=== PATIENT | male | born 1980 | race Caucasian/White ===

== ENCOUNTER 2024-11-19 06:30 | Day surgery (SDC) | payer OTHER, SELFPAY ==
[2024-11-18 10:32] VITALS: BMI 25.3
[2024-11-19] VITALS (7 sets, daily range): BP systolic 83–136; BP diastolic 43–84; PULSE 64–78; RESP 10–16; TEMP 36.4–36.8; O2SAT 95–100; BMI 25.3
--- NOTE | 2024-11-19 | DI.RAD.S_ITS ---
PROCEDURE: XR FOREARM RT 2V INDICATIONS: Post-Op ORIF TECHNIQUE: 2 views of the forearm were acquired. COMPARISON: [facility], [place], XR FOREARM RT 2V, 11/17/2024, 14:31. FINDINGS: Bones: Casted views. Expected appearance post ORIF of a distal 3rd shaft fracture of the radius. Near overall anatomic alignment. Soft tissues: No suspicious soft tissue calcifications or masses. IMPRESSION: Expected postoperative appearance. Dictated by: Harvey Sosa M.D. on 11/19/2024 at 9:54 Approved by: Harvey Sosa M.D. on 11/19/2024 at 9:55
[2024-11-19] MEDS: LACTATED RINGERS 1,000 ML 42 ML IV ×2 (07:14→08:55)
--- NOTE | 2024-11-19 07:28 | PM.PREOP ---
Pre-operative Note Interval Note History & Physical reviewed/Exam performed by Physician: Yes Changes to H&P: No H&P completed within 30 days and has changed as indicated here:: I saw the patient with our PA on 17 November 2024. No changes to H&P.
[2024-11-19] MEDS: SCOPOLAMINE 1 PATCH TOP (07:34)
[2024-11-19] MEDS: CEFAZOLIN 2 GM/100 ML PREMIX 100 ML IV (07:55)
--- NOTE | 2024-11-19 08:06 | SUR.OPER ---
Supine on padded OR bed, head on pillow, left arm secured on padded arm board at <90 degrees abduction, right arm on arm table at less than 90 degrees abduction, legs uncrossed, safety belt at thigh, tape over blanket over lower legs.
[2024-11-19] MEDS: BUPIVACAINE 0.25% (PF) VIAL 30 ML INJ (08:50)
--- NOTE | 2024-11-19 09:21 | P.OP_ITS ---
Operative Date/Time/Diagnoses Date of procedure: 11/19/24 Time of procedure: 07:45 Pre-op diagnosis: right radial shaft (galeazzi) Post-op diagnosis: same Procedure & Clinicians Procedure: ORIF right radial shaft fracture Same procedure as scheduled: Yes Indications: Right radial shaft fracture (galeazzi) Surgeon: Jaylin Montero Dressage Instructor: Shanice Whatley Anesthesia Type: General Operative Notes Findings: The patient was met in the preoperative hold area his right upper extremity was signed as correct extremity. The patient was taken back to the operating room and placed in supine position. All general anesthesia was induced. A well- padded tourniquet was placed to the right upper extremity. The left DRUJ was tested and found to be lax he had a former history of left forearm fracture. The patient was prepped and draped in the standard sterile fashion. A time-out was performed, confirming the correct patient, correct procedure, correct extremity initials on the operative site. An Esmarch was used to exsanguinate the right upper extremity the tourniquet was inflated to 200 mmHg. A 8 cm vertical incision was made centered at the fracture site. Dissection was taken down to the subcutaneous tissue. The superficial branch of the radial nerve and radial artery were protected and moved laterally. The interval between the FCR and brachioradialis was explored and the pronator quadratus was identified as well as FPL these were removed from the radial shaft. The fracture site was identified and cleared of debris. A reduction maneuver was performed with traction and not penetrating reduction clamps. The 7 hole plate was placed on the bone and fixed with 6 2 K-wires. Fluoroscopy was performed and demonstrated that the fracture was reduced and the plate was in good positi on. Next a total of 63.5 mm screws were placed the plate was placed in compression mode. There is excellent reduction at the fracture site. Fluoroscopic imaging was utilized to ensure appropriate screw length and position of the plate as well as fracture reduction. The wound was copiously irrigated and closed in layered fashion with 2-0 Vicryl and 3-0 nylon. The DRUJ was tested and found to be stable and was the most stable in pronation. Fluoro was used to A sterile dressing was performed consistent with a Xeroform, plain gauze, Webril and a sugar-tong splint was placed. The A total of 24 cc of 0.25% Marcaine was placed in a field block in the wound. The patient was awoken and taken to PACU in stable condition. All counts were correct at the end of the case. An political science research assistant was utilized for positioning, retraction, closure and splint placement. Tourniquet: 48 minutes at 200 mm HG. Implants: Synthes 7 hole LCP plate. 6 3.5 mm cortical screws. Closure Type: primary Estimated Blood Loss (mL): 5 Blood products transfused: none Tourniquet time (min): 48 Complications: none Post-operative Condition: stable Disposition: PACU Plan for aftercare: D/c home F/u in 2 weeks for suture removal and transition to a removable velcro splint.
== END 2024-11-19 10:59 | disposition home or self-care (01) ==
PROVIDERS: Visit Provider Orthopaedic Surgery
PROC: (CPT 25525; principal; 2024-11-19 07:45)
DX: S52.321A Displaced transverse fracture of shaft of right radius, initial encounter for closed fracture (principal); Z87.891 Personal history of nicotine dependence; V18.0XXA Pedal cycle driver injured in noncollision transport accident in nontraffic accident, initial encounter; Y93.55 Activity, bike riding
CPT/HCPCS: 25525; 73090; C1713; J0690; J1100; J1885; J2250; J2405; J2704; J3010; J3490

== ENCOUNTER 2025-01-19 16:15 | Outpatient (RCR) | payer OTHER, SELFPAY ==
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
--- NOTE | 2024-12-23 12:43 | PT.OPPOC ---
Physical, Occupational & Speech Therapy At [facility] Current Diagnoses Pain in unspecified shoulder (12/22/24) Pain in right arm (12/22/24) Unspecified dislocation of left acromioclavicular joint, subsequent encounter (12/22/24) Displaced transverse fracture of shaft of right radius, initial encounter for closed fracture (12/22/24) Visit Care Team Role Provider Type Doctor Carlyn, Primary Care Provider Non-Staff Specialty: Medical Address: Phone: Fax: Email: Jaylin Montero DO Attending Provider Physician Referring Provider Specialty: Orthopedics Orthopedic Surgery Address: [address] [place] [address], [id number] Email: [email or web address] Plan Of Care PT-OP-T Assessment and Plan Start: 12/22/24 16:15 Freq: Status: Active Protocol: Document 12/22/24 16:15 BL (Rec: 12/22/24 20:01 BL Laptop) Physical Therapy Assessment Rehab Potential Rehabilitation Good Potential Evaluation Complexity Number of Personal 1-2 Factors/ Comorbidities Number of Body 3 Systems Impaired Clinical Evolving Presentation at Evaluation Impairments Impairments Activity Tolerance,Functional Activities,Functional Mobility,Integument,Pain,Posture,ROM,Soft Tissue Mobility,Strength Goals Four Appeals And Generalist Clerk Goal (LTG) Pt will demo improved L shoulder flexion strength to 4+ /5 by DC without pain for improved completion of overhead activities. Three Snf Goal (LTG) Pt will demo improved R novelty maker strength to 75lbs or better by DC for improved completion of functional ADLS . Two Appeals And Generalist Clerk Goal (LTG) Pt will demo full L shoulder AORM to 170 deg or better without compensation and no feelings of dislocation by DC for improved functional mobility with ADLS. One Short Term Goal (STG pt will be ind with HEP within 2 visits in order to ) progress toward windows and doors installer therapy goal outside of therapy visits. Appeals And Generalist Clerk Goal (LTG) Pt will demo improved QuickDASH score to 25% disability or less by DC for improved functional mobility. Assessment Summary Assessment Pt Presents to the clinic s/p R radial ORIF with L AC joint separation and R wrist pathology. Pt demos slight limitations in ROM and strength through L shoulder and R wrist. Pt also demos decreased stability and strength that are affecting his ability to participate in ADLs. Pt will benefit from strength and endurance training in order to improved functional mobility for return to PLOF and exercise activities. Physical Therapy Plan Frequency and Duration Frequency of 2x/Week Treatment Duration of 10 treatment (weeks) Plan of Care Start 12/22/24 Date Plan of Care End 03/02/25 Date Therapeutic Interventions Therapeutic Coordination Training,Home Exercise Program,Joint Interventions Mobilizations,Manual Therapy,Neuromuscular Re-education ,Orthotic/Prosthetic Management,Patient/Caregiver Education,Self-Care/Home Management,Sensory Integration ,Soft Tissue Mobilization,Taping,Therapeutic Activities ,Therapeutic Exercises Modalities Cold Pack/Ice Massage,Electric Stimulation,Hot Packs, Infrared Therapy,Iontophoresis,Ultrasound Next Visit Focus/Plan Next Note Type Treatment Note Next Visit Plan Advance HEP for L AC joint separation, R wrist pain free ROM strengthening, novelty maker strength training Plan of Care Dates Plan of Care Start Date 12/22/24 Plan of Care End Date 03/02/25 Electronically Signed by: Christiano Whelan, PT 12/23/24 7179 If you are in agreement with this Plan of Care, please return a signed and dated copy. I have reviewed this Plan of Care and certify that the skilled therapy services above are required to meet the patient?s needs. Physician Signature Date Printed Name and Credentials Clinical Instructor Signature Printed Name and Credentials
--- NOTE | 2024-12-24 17:07 | PT.OTN ---
Current Diagnoses Pain in unspecified shoulder (12/22/24) Pain in right arm (12/22/24) Unspecified dislocation of left acromioclavicular joint, subsequent encounter (12/22/24) Displaced transverse fracture of shaft of right radius, initial encounter for closed fracture (12/22/24) Physical Therapy Treatment Note PT-OP-A Visit Information Start: 12/22/24 16:15 Freq: Status: Active Protocol: Document 12/24/24 15:53 BL (Rec: 12/24/24 17:07 BL Laptop) Out-Patient Physical Therapy Visit Information Visit Information Visit Type Treatment Note Visit Start Time 16:00 Visit Stop Time 16:40 Visit Number (2) 2/ (PN by 01/22/10) Number of PERIOPERATIVE EDUCATOR Visits 0 PT-OP-C Subjective Start: 12/22/24 16:15 Freq: Status: Active Protocol: Document 12/24/24 15:53 BL (Rec: 12/24/24 17:07 BL Laptop) OP-PT Subjective Patient Comments Patient Comments Pt presents to the clinic this date and reports he is doing well, states HEP is going well, has been wrapping his wrist and this has improved his symptoms. PT-OP-J Posture/Palpation/Skin Start: 12/22/24 16:15 Freq: Status: Active Protocol: Document 12/22/24 16:15 BL (Rec: 12/22/24 20:01 BL Laptop) Posture Evaluation Position posture Evaluation View . Comments Posture Comments Pt presents with neutral alignment of cervical, thoracic, and lumbar spine, stands with neutral posture , slight L rotation. Pt demos L shoulder step off deformity. Palpation Assessment Location R elbow Palpation Details no pain noted through common flexor or extensor tendon group/ muscle bellies R wrist Palpation Details pain noted with deep palpation to dorsal medial aspect of wrist. L shoulder Palpation Details Pain noted with palpation to L AC area. PT-OP-K Range of Motion Start: 12/22/24 16:15 Freq: Status: Active Protocol: Document 12/22/24 16:15 BL (Rec: 12/22/24 20:01 BL Laptop) Cervical Spine Range of Motion Cervical Spine Active Percentage Comments WFL Shoulder Goniometric Range of Motion Shoulder right Flexion 170 Abduction 170 External Rotation at 95 90 degrees Abduction Internal Rotation 70 Comments z left Flexion 160 Abduction 160 External Rotation at 80 90 degrees Abduction Internal Rotation 60 Comments pt reports feeling his shoulder is going to pop out of place with ER. Elbow/Forearm Range of Motion Elbow/Forearm right Comments WFL left Comments WFL Wrist Goniometric Range of Motion Wrist Right Flexion Active ( 65 degrees) Extension Active ( 60 degrees) Ulnar Deviation 25 Active (degrees) Radial Deviation 20 Active (degrees) Left Flexion Active ( 65 degrees) Extension Active ( 65 degrees) Ulnar Deviation 25 Active (degrees) Radial Deviation 20 Active (degrees) ROM Limitations Comments pain noted at all end ranges on R PT-OP-M Strength Start: 12/22/24 16:15 Freq: Status: Active Protocol: Document 12/22/24 16:15 BL (Rec: 12/22/24 20:01 BL Laptop) Shoulder Strength Shoulder Manual Muscle Testing Right Flexion 5 Normal Extension 4+ Good+ Abduction (C5) 4+ Good+ Internal Rotation 4+ Good+ Left Flexion 4 Good Extension 4 Good Abduction (C5) 4+ Good+ External Rotation 4+ Good+ Internal Rotation 4+ Good+ Wrist Strength Wrist Manual Muscle Testing Left Flexion (C7) 5 Normal Hand Cnc Mill Operator/Pinch Strength Hand Dominance Hand Dominance Right Hand Strength Right Cnc Mill Operator (lbs) 60 Left Cnc Mill Operator (lbs) 80 PT-OP-Q Treatments Start: 12/22/24 16:15 Freq: Status: Active Protocol: Document 12/24/24 15:53 BL (Rec: 12/24/24 17:07 BL Laptop) Therapeutic Exercises Prone Exercises T,Y,A Prone Exercise Name cues for scapular retraction Equipment Used 0# Comments pt fatigued following Sitting Exercises Tband Sitting Exercise IR/ER/Ext Name Comments cues for glenohumeral depression. PT-OP-T Assessment and Plan Start: 12/22/24 16:15 Freq: Status: Active Protocol: Document 12/24/24 15:53 BL (Rec: 12/24/24 17:07 BL Laptop) Physical Therapy Assessment Goals Four Programming Internship Goal (LTG) Pt will demo improved L shoulder flexion strength to 4+ /5 by DC without pain for improved completion of overhead activities. Three Programming Internship Goal (LTG) Pt will demo improved R manager transfusion strength to 75lbs or better by DC for improved completion of functional ADLS . Two Senior Living Goal (LTG) Pt will demo full L shoulder AORM to 170 deg or better without compensation and no feelings of dislocation by DC for improved functional mobility with ADLS. One Short Term Goal (STG pt will be ind with HEP within 2 visits in order to ) progress toward adjunct faculty for medical terminology therapy goal outside of therapy visits. Programming Internship Goal (LTG) Pt will demo improved QuickDASH score to 25% disability or less by DC for improved functional mobility. Assessment Summary Assessment Pt tolerates session well, progress HEP for scapular and glenohumeral stabilization, pt continues to have mild discomfort over superior shoulder with flexion activities or deep extension. Pt instructed to avoid working into pain. Pt fatigued following session. Physical Therapy Plan Frequency and Duration Frequency of 2x/Week Treatment Duration of 10 treatment (weeks) Plan of Care Start 12/22/24 Date Plan of Care End 03/02/25 Date Next Visit Focus/Plan Next Note Type Treatment Note Next Visit Plan Advance HEP for L AC joint separation, R wrist pain free ROM strengthening, manager transfusion strength training
--- NOTE | 2024-12-30 16:58 | PT.OTN ---
Current Diagnoses Pain in unspecified shoulder (12/30/24) Pain in right arm (12/30/24) Unspecified dislocation of left acromioclavicular joint, subsequent encounter (12/30/24) Displaced transverse fracture of shaft of right radius, initial encounter for closed fracture (12/30/24) Physical Therapy Treatment Note PT-OP-A Visit Information Start: 12/22/24 16:15 Freq: Status: Active Protocol: Document 12/30/24 16:18 BL (Rec: 12/30/24 16:57 BL Laptop) Out-Patient Physical Therapy Visit Information Visit Information Visit Type Treatment Note Visit Start Time 16:15 Visit Stop Time 16:55 Visit Number (3) 3 (PN by 01/22/10) Number of CLAM DREDGER Visits 0 PT-OP-C Subjective Start: 12/22/24 16:15 Freq: Status: Active Protocol: Document 12/30/24 16:18 BL (Rec: 12/30/24 16:57 BL Laptop) OP-PT Subjective Patient Comments Patient Comments Pt presents to the clinic this date and reports he is doing well, states HEP is going well, reports similar pains in R wrist. Pt states improved shoulder strength however continues to have mild discomfort with certain movements. PT-OP-J Posture/Palpation/Skin Start: 12/22/24 16:15 Freq: Status: Active Protocol: Document 12/22/24 16:15 BL (Rec: 12/22/24 20:01 BL Laptop) Posture Evaluation Position posture Evaluation View . Comments Posture Comments Pt presents with neutral alignment of cervical, thoracic, and lumbar spine, stands with neutral posture , slight L rotation. Pt demos L shoulder step off deformity. Palpation Assessment Location R elbow Palpation Details no pain noted through common flexor or extensor tendon group/ muscle bellies R wrist Palpation Details pain noted with deep palpation to dorsal medial aspect of wrist. L shoulder Palpation Details Pain noted with palpation to L AC area. PT-OP-K Range of Motion Start: 12/22/24 16:15 Freq: Status: Active Protocol: Document 12/22/24 16:15 BL (Rec: 12/22/24 20:01 BL Laptop) Cervical Spine Range of Motion Cervical Spine Active Percentage Comments WFL Shoulder Goniometric Range of Motion Shoulder right Flexion 170 Abduction 170 External Rotation at 95 90 degrees Abduction Internal Rotation 70 Comments z left Flexion 160 Abduction 160 External Rotation at 80 90 degrees Abduction Internal Rotation 60 Comments pt reports feeling his shoulder is going to pop out of place with ER. Elbow/Forearm Range of Motion Elbow/Forearm right Comments WFL left Comments WFL Wrist Goniometric Range of Motion Wrist Right Flexion Active ( 65 degrees) Extension Active ( 60 degrees) Ulnar Deviation 25 Active (degrees) Radial Deviation 20 Active (degrees) Left Flexion Active ( 65 degrees) Extension Active ( 65 degrees) Ulnar Deviation 25 Active (degrees) Radial Deviation 20 Active (degrees) ROM Limitations Comments pain noted at all end ranges on R PT-OP-M Strength Start: 12/22/24 16:15 Freq: Status: Active Protocol: Document 12/22/24 16:15 BL (Rec: 12/22/24 20:01 BL Laptop) Shoulder Strength Shoulder Manual Muscle Testing Right Flexion 5 Normal Extension 4+ Good+ Abduction (C5) 4+ Good+ Internal Rotation 4+ Good+ Left Flexion 4 Good Extension 4 Good Abduction (C5) 4+ Good+ External Rotation 4+ Good+ Internal Rotation 4+ Good+ Wrist Strength Wrist Manual Muscle Testing Left Flexion (C7) 5 Normal Hand Clerical Support Specialist/Pinch Strength Hand Dominance Hand Dominance Right Hand Strength Right Clerical Support Specialist (lbs) 60 Left Clerical Support Specialist (lbs) 80 PT-OP-Q Treatments Start: 12/22/24 16:15 Freq: Status: Active Protocol: Document 12/30/24 16:18 BL (Rec: 12/30/24 16:57 BL Laptop) Therapeutic Exercises Prone Exercises T,Y,A Prone Exercise Name cues for scapular retraction Equipment Used 0# Comments pt fatigued following Sitting Exercises Tband Sitting Exercise IR/ER/Ext Name Resistance blue band Comments cues for glenohumeral depression. Standing Exercises strength Standing Exercise Wall Ball, Banded wall walks with elbows Name Resistance Ylw theraball, lvl 1 band Comments 3x 30 sec, decreased rhythm and speed, fatigued following. PT-OP-T Assessment and Plan Start: 12/22/24 16:15 Freq: Status: Active Protocol: Document 12/30/24 16:18 BL (Rec: 12/30/24 16:57 BL Laptop) Physical Therapy Assessment Goals Four Garage Mechanic Goal (LTG) Pt will demo improved L shoulder flexion strength to 4+ /5 by DC without pain for improved completion of overhead activities. Three Care Home Goal (LTG) Pt will demo improved R jewel sawyer strength to 75lbs or better by DC for improved completion of functional ADLS . Two Garage Mechanic Goal (LTG) Pt will demo full L shoulder AORM to 170 deg or better without compensation and no feelings of dislocation by DC for improved functional mobility with ADLS. One Short Term Goal (STG pt will be ind with HEP within 2 visits in order to ) progress toward termite control service representative therapy goal outside of therapy visits. Garage Mechanic Goal (LTG) Pt will demo improved QuickDASH score to 25% disability or less by DC for improved functional mobility. Assessment Summary Assessment Pt tolerates session well, progress HEP for scapular and glenohumeral stabilization with good control, cues provided for scapular and glenohumeral depression with improvement in symptoms. Pt fatigues quickly and is progressing well. Physical Therapy Plan Frequency and Duration Frequency of 2x/Week Treatment Duration of 10 treatment (weeks) Plan of Care Start 12/22/24 Date Plan of Care End 03/02/25 Date Next Visit Focus/Plan Next Note Type Treatment Note Next Visit Plan Advance HEP for L AC joint separation, R wrist pain free ROM strengthening, jewel sawyer strength training
--- NOTE | 2025-01-05 17:00 | PT.OTN ---
Current Diagnoses Pain in unspecified shoulder (01/05/25) Pain in right arm (01/05/25) Unspecified dislocation of left acromioclavicular joint, subsequent encounter (01/05/25) Displaced transverse fracture of shaft of right radius, initial encounter for closed fracture (01/05/25) Physical Therapy Treatment Note PT-OP-A Visit Information Start: 12/22/24 16:15 Freq: Status: Active Protocol: Document 01/05/25 16:28 BL (Rec: 01/05/25 17:00 BL Laptop) Out-Patient Physical Therapy Visit Information Visit Information Visit Type Treatment Note Visit Start Time 16:15 Visit Stop Time 16:55 Visit Number (4) 09/23 (PN by 01/22/10) Number of TIME STUDY ANALYST Visits 0 Precautions Precautions Latex Allergy PT-OP-C Subjective Start: 12/22/24 16:15 Freq: Status: Active Protocol: Document 01/05/25 16:28 BL (Rec: 01/05/25 17:00 BL Laptop) OP-PT Subjective Patient Comments Patient Comments Pt presents to the clinic this date and reports he is doing well, has been able to sleep on his L shoulder a bit. Continues to have same pain through R wrist. PT-OP-J Posture/Palpation/Skin Start: 12/22/24 16:15 Freq: Status: Active Protocol: Document 12/22/24 16:15 BL (Rec: 12/22/24 20:01 BL Laptop) Posture Evaluation Position posture Evaluation View . Comments Posture Comments Pt presents with neutral alignment of cervical, thoracic, and lumbar spine, stands with neutral posture , slight L rotation. Pt demos L shoulder step off deformity. Palpation Assessment Location R elbow Palpation Details no pain noted through common flexor or extensor tendon group/ muscle bellies R wrist Palpation Details pain noted with deep palpation to dorsal medial aspect of wrist. L shoulder Palpation Details Pain noted with palpation to L AC area. PT-OP-K Range of Motion Start: 12/22/24 16:15 Freq: Status: Active Protocol: Document 12/22/24 16:15 BL (Rec: 12/22/24 20:01 BL Laptop) Cervical Spine Range of Motion Cervical Spine Active Percentage Comments WFL Shoulder Goniometric Range of Motion Shoulder right Flexion 170 Abduction 170 External Rotation at 95 90 degrees Abduction Internal Rotation 70 Comments z left Flexion 160 Abduction 160 External Rotation at 80 90 degrees Abduction Internal Rotation 60 Comments pt reports feeling his shoulder is going to pop out of place with ER. Elbow/Forearm Range of Motion Elbow/Forearm right Comments WFL left Comments WFL Wrist Goniometric Range of Motion Wrist Right Flexion Active ( 65 degrees) Extension Active ( 60 degrees) Ulnar Deviation 25 Active (degrees) Radial Deviation 20 Active (degrees) Left Flexion Active ( 65 degrees) Extension Active ( 65 degrees) Ulnar Deviation 25 Active (degrees) Radial Deviation 20 Active (degrees) ROM Limitations Comments pain noted at all end ranges on R PT-OP-M Strength Start: 12/22/24 16:15 Freq: Status: Active Protocol: Document 12/22/24 16:15 BL (Rec: 12/22/24 20:01 BL Laptop) Shoulder Strength Shoulder Manual Muscle Testing Right Flexion 5 Normal Extension 4+ Good+ Abduction (C5) 4+ Good+ Internal Rotation 4+ Good+ Left Flexion 4 Good Extension 4 Good Abduction (C5) 4+ Good+ External Rotation 4+ Good+ Internal Rotation 4+ Good+ Wrist Strength Wrist Manual Muscle Testing Left Flexion (C7) 5 Normal Hand Test Driller/Pinch Strength Hand Dominance Hand Dominance Right Hand Strength Right Test Driller (lbs) 60 Left Test Driller (lbs) 80 PT-OP-Q Treatments Start: 12/22/24 16:15 Freq: Status: Active Protocol: Document 01/05/25 16:28 BL (Rec: 01/05/25 17:00 BL Laptop) Therapeutic Exercises Prone Exercises T,Y,A Prone Exercise Name cues for scapular retraction (reviewed) Equipment Used 0# Comments pt fatigued following Sitting Exercises Tband Sitting Exercise IR/ER/Ext Name Resistance purple Comments cues for glenohumeral depression. Standing Exercises strength Standing Exercise Wall Ball, Ball drops, Banded wall walks with elbows Name Resistance red theraball, lvl 3 latex free band Comments 3x 30 sec, decreased rhythm and speed, fatigued following. PT-OP-T Assessment and Plan Start: 12/22/24 16:15 Freq: Status: Active Protocol: Document 01/05/25 16:28 BL (Rec: 01/05/25 17:00 BL Laptop) Physical Therapy Assessment Goals Four Intermediate Goal (LTG) Pt will demo improved L shoulder flexion strength to 4+ /5 by DC without pain for improved completion of overhead activities. Three Intermediate Goal (LTG) Pt will demo improved R transit vehicle inspector strength to 75lbs or better by DC for improved completion of functional ADLS . Two Intermediate Goal (LTG) Pt will demo full L shoulder AORM to 170 deg or better without compensation and no feelings of dislocation by DC for improved functional mobility with ADLS. One Short Term Goal (STG pt will be ind with HEP within 2 visits in order to ) progress toward fdc therapy goal outside of therapy visits. Intermediate Goal (LTG) Pt will demo improved QuickDASH score to 25% disability or less by DC for improved functional mobility. Assessment Summary Assessment Pt tolerates session well, continue to advance HEP per pt tolerance able to increase resistance this date for stabilization exercise with good fatigue noted. Pt has MRI of R wrist scheduled for 01/06/25. Will discuss progression of wrist next visit. Physical Therapy Plan Frequency and Duration Frequency of 2x/Week Treatment Duration of 10 treatment (weeks) Plan of Care Start 12/22/24 Date Plan of Care End 03/02/25 Date Next Visit Focus/Plan Next Note Type Treatment Note Next Visit Plan Advance HEP for L AC joint separation, R wrist pain free ROM strengthening, transit vehicle inspector strength training
--- NOTE | 2025-01-14 17:09 | PT.OTN ---
Current Diagnoses Pain in unspecified shoulder (01/14/25) Pain in right arm (01/14/25) Unspecified dislocation of left acromioclavicular joint, subsequent encounter (01/14/25) Displaced transverse fracture of shaft of right radius, initial encounter for closed fracture (01/14/25) Physical Therapy Treatment Note PT-OP-A Visit Information Start: 12/22/24 16:15 Freq: Status: Active Protocol: Document 01/14/25 16:16 BL (Rec: 01/14/25 17:09 BL Laptop) Out-Patient Physical Therapy Visit Information Visit Information Visit Type Treatment Note Visit Start Time 16:15 Visit Stop Time 16:55 Visit Number (5) 10/23 (PN by 01/22/10) Number of HIM CLERK Visits 0 Precautions Precautions Latex Allergy PT-OP-C Subjective Start: 12/22/24 16:15 Freq: Status: Active Protocol: Document 01/14/25 16:16 BL (Rec: 01/14/25 17:09 BL Laptop) OP-PT Subjective Patient Comments Patient Comments Pt presents to the clinic this date and reports he is doing well, states his L shoulder is 85% back to normal . States his R wrist MRI showed a dorsal ulnar dislocation and ligament tear. Pt has a follow up with the surgeon on Friday. PT-OP-J Posture/Palpation/Skin Start: 12/22/24 16:15 Freq: Status: Active Protocol: Document 12/22/24 16:15 BL (Rec: 12/22/24 20:01 BL Laptop) Posture Evaluation Position posture Evaluation View . Comments Posture Comments Pt presents with neutral alignment of cervical, thoracic, and lumbar spine, stands with neutral posture , slight L rotation. Pt demos L shoulder step off deformity. Palpation Assessment Location R elbow Palpation Details no pain noted through common flexor or extensor tendon group/ muscle bellies R wrist Palpation Details pain noted with deep palpation to dorsal medial aspect of wrist. L shoulder Palpation Details Pain noted with palpation to L AC area. PT-OP-K Range of Motion Start: 12/22/24 16:15 Freq: Status: Active Protocol: Document 12/22/24 16:15 BL (Rec: 12/22/24 20:01 BL Laptop) Cervical Spine Range of Motion Cervical Spine Active Percentage Comments WFL Shoulder Goniometric Range of Motion Shoulder right Flexion 170 Abduction 170 External Rotation at 95 90 degrees Abduction Internal Rotation 70 Comments z left Flexion 160 Abduction 160 External Rotation at 80 90 degrees Abduction Internal Rotation 60 Comments pt reports feeling his shoulder is going to pop out of place with ER. Elbow/Forearm Range of Motion Elbow/Forearm right Comments WFL left Comments WFL Wrist Goniometric Range of Motion Wrist Right Flexion Active ( 65 degrees) Extension Active ( 60 degrees) Ulnar Deviation 25 Active (degrees) Radial Deviation 20 Active (degrees) Left Flexion Active ( 65 degrees) Extension Active ( 65 degrees) Ulnar Deviation 25 Active (degrees) Radial Deviation 20 Active (degrees) ROM Limitations Comments pain noted at all end ranges on R PT-OP-M Strength Start: 12/22/24 16:15 Freq: Status: Active Protocol: Document 12/22/24 16:15 BL (Rec: 12/22/24 20:01 BL Laptop) Shoulder Strength Shoulder Manual Muscle Testing Right Flexion 5 Normal Extension 4+ Good+ Abduction (C5) 4+ Good+ Internal Rotation 4+ Good+ Left Flexion 4 Good Extension 4 Good Abduction (C5) 4+ Good+ External Rotation 4+ Good+ Internal Rotation 4+ Good+ Wrist Strength Wrist Manual Muscle Testing Left Flexion (C7) 5 Normal Hand Parks Worker/Pinch Strength Hand Dominance Hand Dominance Right Hand Strength Right Parks Worker (lbs) 60 Left Parks Worker (lbs) 80 PT-OP-Q Treatments Start: 12/22/24 16:15 Freq: Status: Active Protocol: Document 01/14/25 16:16 BL (Rec: 01/14/25 17:09 BL Laptop) Therapeutic Exercises Prone Exercises T,Y,A Prone Exercise Name cues for scapular retraction (reviewed) on SB Equipment Used 4# Comments pt fatigued following, added I's this date with 0# Sitting Exercises Tband Sitting Exercise IR/ER/Ext/ 90-90 ER, D2 flexion, extension Name Resistance purple/ orange latex free Comments cues for glenohumeral depression. Standing Exercises strength Standing Exercise Wall Ball, Ball drops, Banded wall walks with elbows Name Resistance red theraball, lvl 3 latex free band Comments 3x 30 sec, decreased rhythm and speed, fatigued following. PT-OP-T Assessment and Plan Start: 12/22/24 16:15 Freq: Status: Active Protocol: Document 01/14/25 16:16 BL (Rec: 01/14/25 17:09 BL Laptop) Physical Therapy Assessment Goals Four Cylinder Machine Operator Goal (LTG) Pt will demo improved L shoulder flexion strength to 4+ /5 by DC without pain for improved completion of overhead activities. Three Mcfp Goal (LTG) Pt will demo improved R woodwork teacher strength to 75lbs or better by DC for improved completion of functional ADLS . Two Cylinder Machine Operator Goal (LTG) Pt will demo full L shoulder AORM to 170 deg or better without compensation and no feelings of dislocation by DC for improved functional mobility with ADLS. One Short Term Goal (STG pt will be ind with HEP within 2 visits in order to ) progress toward tank terminal gauger therapy goal outside of therapy visits. Cylinder Machine Operator Goal (LTG) Pt will demo improved QuickDASH score to 25% disability or less by DC for improved functional mobility. Assessment Summary Assessment Pt tolerates session well, continue to advance HEP per pt tolerance able to increase resistance this date for stabilization exercise with good fatigue noted. Will continue to advise on wrist following orthopedic recommendation.
--- NOTE | 2025-01-19 17:02 | PT.OPPN ---
Current Diagnoses Pain in unspecified shoulder (01/19/25) Pain in right arm (01/19/25) Unspecified dislocation of left acromioclavicular joint, subsequent encounter (01/19/25) Displaced transverse fracture of shaft of right radius, initial encounter for closed fracture (01/19/25) Physical Therapy Progress Note PT OP: Cervical/Upper Extremity Start: 01/19/25 08:58 Freq: Status: Active Protocol: Document 01/19/25 16:23 BL (Rec: 01/19/25 17:01 BL Laptop) Out-Patient Physical Therapy Visit Information Visit Information Visit Type Progress Note Visit Start Time 16:15 Visit Stop Time 16:55 Visit Number (6) 11/23 Number of DEPUTY K 9 Visits 0 Progress Note Due 02/18/25 OP-PT Subjective Patient Comments Patient Comments Pt presents to the clinic this date and reports he is doing well, follow up with surgeon and was referred to a hand specialist. Pt reports slight burning with riding his bike and continues to notice step off deformity. Posture Evaluation Position posture Evaluation View . Shoulder Strength Shoulder Manual Muscle Testing Right Flexion 5 Normal Extension 4+ Good+ Abduction (C5) 4+ Good+ Internal Rotation 4+ Good+ Left Flexion 4+ Good+ Extension 4 Good Abduction (C5) 4+ Good+ External Rotation 4+ Good+ Internal Rotation 4+ Good+ Therapeutic Exercises Prone Exercises T,Y,A Prone Exercise Name cues for scapular retraction (reviewed) on SB Equipment Used 4# Comments pt fatigued following, added I's this date with 0# Sitting Exercises Tband Sitting Exercise 90-90 ER, Name Resistance orange latex free Comments cues for glenohumeral depression. Standing Exercises strength Standing Exercise Wall Ball, Body Blade (flex/ext, er/ir, behind back, at Name side) Resistance green theraball, Comments 3x 30 sec, decreased rhythm and speed, fatigued following. Physical Therapy Assessment Goals Four Halfway Goal (LTG) Pt will demo improved L shoulder flexion strength to 4+ /5 by DC without pain for improved completion of overhead activities. (Progressing) 01/19/25: pt demos strength of 4+/5 but continues to have mild discomfort Three Halfway Goal (LTG) Pt will demo improved R automatic coil machine operator strength to 75lbs or better by DC for improved completion of functional ADLS . (Goal Held until cleared by hand specialist) Two Halfway Goal (LTG) Pt will demo full L shoulder AORM to 170 deg or better without compensation and no feelings of dislocation by DC for improved functional mobility with ADLS. (Goal Met) 01/19/25: demos 175 deg this date One Short Term Goal (STG pt will be ind with HEP within 2 visits in order to ) progress toward fdc therapy goal outside of therapy visits. (goal met) Halfway Goal (LTG) Pt will demo improved QuickDASH score to 25% disability or less by DC for improved functional mobility. ( progressing). pt reports continued progress toward goals. Assessment Summary Assessment Pt continues to demo improved AROM with improved scapular stability. Pt demos improved Strength and RC stabilization with activity. Pt demos improved functional mobility with less pain however continues to have fatigue with activity. Pt continues to progress toward therapy goals. Pt will benefit from continued PT intervention for further strength and stabilization activity. Physical Therapy Plan Frequency and Duration Frequency of 2x/Week Treatment Duration of 10 treatment (weeks) Plan of Care Start 12/22/24 Date Plan of Care End 03/02/25 Date Next Visit Focus/Plan Next Note Type Treatment Note Next Visit Plan Advance HEP for L AC joint separation, R wrist pain free ROM strengthening, automatic coil machine operator strength training
--- NOTE | 2025-01-28 16:32 | PT-IP ANOTE ---
Called and spoke with pt who reports he is home with a sick daughter and forgot to cancel his appointment. Will call next week to set up additional appointments.
--- NOTE | 2025-02-23 14:17 | PT.OPDS ---
Current Diagnoses Pain in unspecified shoulder (01/19/25) Pain in right arm (01/19/25) Unspecified dislocation of left acromioclavicular joint, subsequent encounter (01/19/25) Displaced transverse fracture of shaft of right radius, initial encounter for closed fracture (01/19/25) Visit Care Team Role Provider Type Doctor Carlyn, Primary Care Provider Non-Staff Specialty: Medical Address: Phone: Fax: Email: Jaylin Montero DO Attending Provider Physician Referring Provider Specialty: Orthopedics Orthopedic Surgery Address: [address] [place] [address], [id number] Email: [email or web address] Visit Number Visit Number ([id number]) 11/23 Discharge Summary Unable to follow up with pt, plan to DC pt at this time. PT OP: Cervical/Upper Extremity Start: 01/19/25 08:58 Freq: Status: Active Protocol: Document 01/19/25 16:23 BL (Rec: 01/19/25 17:01 BL Laptop) Out-Patient Physical Therapy Visit Information Visit Information Visit Type Progress Note Visit Start Time 16:15 Visit Stop Time 16:55 Visit Number (6) 11/23 Number of PMO BUSINESS ANALYST Visits 0 Progress Note Due 02/18/25 OP-PT Subjective Patient Comments Patient Comments Pt presents to the clinic this date and reports he is doing well, follow up with surgeon and was referred to a hand specialist. Pt reports slight burning with riding his bike and continues to notice step off deformity. Posture Evaluation Position posture Evaluation View . Shoulder Strength Shoulder Manual Muscle Testing Right Flexion 5 Normal Extension 4+ Good+ Abduction (C5) 4+ Good+ Internal Rotation 4+ Good+ Left Flexion 4+ Good+ Extension 4 Good Abduction (C5) 4+ Good+ External Rotation 4+ Good+ Internal Rotation 4+ Good+ Therapeutic Exercises Prone Exercises T,Y,A Prone Exercise Name cues for scapular retraction (reviewed) on SB Equipment Used 4# Comments pt fatigued following, added I's this date with 0# Sitting Exercises Tband Sitting Exercise 90-90 ER, Name Resistance orange latex free Comments cues for glenohumeral depression. Standing Exercises strength Standing Exercise Wall Ball, Body Blade (flex/ext, er/ir, behind back, at Name side) Resistance green therabamilla, Comments 3x 30 sec, decreased rhythm and speed, fatigued following. Physical Therapy Assessment Goals Four Change Management Goal (LTG) Pt will demo improved L shoulder flexion strength to 4+ /5 by DC without pain for improved completion of overhead activities. 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 (Goal Held until cleared by hand specialist) Two Change Management Goal (LTG) Pt will demo full L shoulder AORM to 170 deg or better without compensation and no feelings of dislocation by DC for improved functional mobility with ADLS. 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 (goal met) Mcc Goal (LTG) Pt will demo improved QuickDASH score to 25% disability or less by DC for improved functional mobility. ( progressing). pt reports continued progress toward goals. Assessment Summary Assessment Pt continues to demo improved AROM with improved scapular stability. Pt demos improved Strength and RC stabilization with activity. Pt demos improved functional mobility with less pain however continues to have fatigue with activity. Pt continues to progress toward therapy goals. Pt will benefit from continued PT intervention for further strength and stabilization activity. Physical Therapy Plan Frequency and Duration Frequency of 2x/Week Treatment Duration of 10 treatment (weeks) Plan of Care Start 12/22/24 Date Plan of Care End 03/02/25 Date Next Visit Focus/Plan Next Note Type Treatment Note Next Visit Plan Advance HEP for L AC joint separation, R wrist pain free ROM strengthening, outboard motorboat rigger strength training
== END 2025-02-24 13:20 | disposition home or self-care (01) ==
LOC: PHYS 16:15
PROVIDERS: Referring Provider Orthopaedic Surgery; Visit Provider Orthopaedic Surgery
DX: M25.519 Pain in unspecified shoulder (principal); M79.601 Pain in right arm; S43.102D Unspecified dislocation of left acromioclavicular joint, subsequent encounter; S52.321A Displaced transverse fracture of shaft of right radius, initial encounter for closed fracture
CPT/HCPCS: 97110; 97162